=== PATIENT | male | born 1955 | race Caucasian/White ===

== ENCOUNTER 2024-12-20 15:29 | Inpatient (IN) | payer MEDICARE, MEDICAID, SELFPAY ==
[2024-12-20] VITALS (7 sets, daily range): BP systolic 107–121; BP diastolic 74–83; PULSE 71–93; RESP 16–99; TEMP 36.2–37.1; O2SAT 96–100
--- NOTE | 2024-12-20 15:37 | EKG_ITS ---
[facility] Test Date: 2024-12-20 Pat Name: KEENAN MURILLO Department: Room: - Gender: Male [employer]: : [id number] Requested By: Debbie Zacarias Order Number: [id number] Reading MD: Debbie Zacarias Measurements Intervals [place] Rate: 77 P: 27 KS: 149 QRS: -29 QRSD: 92 T: 30 QT: 366 QTc: 416 Interpretive Statements SINUS RHYTHM BORDERLINE LEFT AXIS DEVIATION [QRS AXIS < -20] LOW QRS VOLTAGE IN PRECORDIAL LEADS [QRS DEFLECTION < 1.0 mV IN CHEST LEADS] No previous ECG available for comparison /store/S0/[id number].pdf
--- NOTE | 2024-12-20 15:37 | XR_ITS ---
Examination: CT brain head without contrast. 2-D sagittal coronal reconstructions Date and time of exam:December 20, 2024 1541 hours INDICATIONS: Stroke alert, ataxia unsteady gait today CTDI: vol (mGy):50.3 DLP: (mGycm):1097 Technique: Multiple CT axial sections of the brain have been obtained, 5 mm slice thickness. Contrast has not been administered. 2-D sagittal, coronal reconstructions have been obtained Low dose protocols were performed. One or more of the following dose reduction techniques were used; automated exposure control, adjustment of the mA and/or KV according to patient size, use of iterative reconstruction technique. Findings: No significant ventricular enlargement. Subtle low-density in the right occipital lobe, axial image 25 No acute hemorrhage Ventricles are not enlarged No mass effect IMPRESSION: Suspicious for early acute nonhemorrhagic infarct in the right occipital lobe
--- NOTE | 2024-12-20 15:37 | XR_ITS ---
Examination: CTA carotids with intravenous contrast CTA brain, head with intravenous contrast. 2-D sagittal, coronal reconstructions. 3-D reconstructions. Exam date and time: December 1554 hours INDICATIONS: Stroke alert, ataxia today CTDI: vol (mGy) 22.2 DLP: (mGycm) 161 Technique: Multiple CTA axial brain, head carotid images post intravenous contrast injection 75 cc, Isovue-[id number]. 2-D sagittal, coronal reconstructions. 3-D reconstructions, 3-D post processing including vascular maximum intensity projection images. Low dose protocols were performed. One or more of the following dose reduction techniques were used; automated exposure control, adjustment of the mA and/or KV according to patient size, use of iterative reconstruction technique. Findings: 2 no significant common carotid carotid bifurcation or internal carotid artery stenoses Dominant right vertebral artery with no critical [id number] 10 mm calcification in the right thyroid gland Intracranial vertebral arteries do fill as well as basilar artery Juxtasellar portions of the internal carotid arteries M1 segments middle cerebral arteries middle cerebral artery trifurcation vessels fill as well as anterior cerebral arteries Occlusion of the right posterior cerebral artery at junction P1 P2 segments with distal filling IMPRESSION: No significant neck arterial stenoses Occlusion of the right posterior cerebral artery junction P1 P2 segments with distal filling
--- NOTE | 2024-12-20 15:39 | EDNOTE_ITS ---
Neuro Symptoms Deficit-RME/HPI General Chief Complaint: Neuro Symptoms/Deficit Stated Complaint: BLURRY VISION AND UNSTEADY GAIT; LKN@2100LASTNIGHT Time Seen by Provider: 12/20/24 15:37 Arrival date/time: 12/20/24 15:29 RME / HPI RME / HPI Narrative: 69-year-old male patient with no past medical history, however homeless, came in for evaluation regarding blurry vision and unsteady gait. Patient last well- known time was 9 PM last night before going to sleep. Show up to her mom because they are doing scheduled grocery today. Patient was noted to be less conversant than usual, blurry vision, cannot recognize things, and unsteady gait patient was noted to be ambulatory however dragging the left lower extremity. Denies any headache denies any other complaints patient is not taking any medication. Related Data Allergies Allergy/AdvReac Type Severity Reaction Status Date / Time No Known Allergies Allergy Verified 12/20/24 15:41 Review of Systems Review of Systems Narrative Review of Systems: Review of system reviewed and within normal limits except mentioned in HPI ED Exam Narrative Physical exam: VITAL SIGNS: Reviewed. GENERAL APPEARANCE: Alert and interactive, follows commands, no acute distress, HEAD AND FACE: Non-traumatic. ENT: PERRL, pink conjunctivitis, eyelid no trauma, Mucous membrane moist. NECK: Supple, nontender, no nuchal rigidity. CHEST: No tenderness, no crepitus, no paradoxical movement, no retractions. LUNGS: Clear, well ventilated, symmetric, no rales, no wheezing, no ronchi, no stridor, good breath sounds bilaterally. HEART: Regular rate, regular rhythm, no murmur, no gallops. ABDOMEN: Soft, positive bowel sounds, nondistended, no guarding, nontender, no rebound, no masses, RECTAL: Deferred. GENITAL: Deferred. NEUROLOGICAL: Gross motor function intact sensory function intact, Appropriate for age. MUSCULOSKELETAL: low back nontender, full range of motion. EXTREMITIES: Nontender, full range of motion. SKIN: Color pink, dry, no rash, no lacerations, no abrasions, no contusions. LYMPHATICS: Deferred. Course Quality Measures none Orders Category Date Time Status Bedside Blood Glucose NOW Care 12/20/24 15:37 Active Assistant Professor Of Mathematics NOW Care 12/20/24 15:37 Active Continuous Pulse Oximetry NOW Care 12/20/24 15:37 Completed EKG (ED ONLY) *Do not use* NOW Care 12/20/24 15:37 Completed In and Out Catheter NEEDED Care 12/20/24 15:37 Active Insert IV NOW Care 12/20/24 15:37 Active NIH Stroke Scale now Care 12/20/24 15:37 Active NPO NOW Care 12/20/24 15:37 Active Nurse Swallow Screen x1 Care 12/20/24 15:37 Active Consult to Neurology / Tele-Neurology Routine Cons 12/20/24 15:[address] angio stroke protocol Stat Exams 12/20/24 15:[address] stroke protocol Stat Exams 12/20/24 15:37 Completed EKG (ED Only) Stat Exams 12/20/24 15:37 Draft CBC Stat Lab 12/20/24 15:55 Completed Comprehensive Metabolic Panel Stat Lab 12/20/24 15:55 Completed Drug Screen,Urine Stat Lab 12/20/24 20:10 Completed HCG Titer if Positive Stat Lab 12/20/24 15:55 Completed Magnesium Stat Lab 12/20/24 15:55 Completed Partial Thromboplastin Time Stat Lab 12/20/24 15:55 Completed Prothrombin Time with INR Stat Lab 12/20/24 15:55 Completed Troponin I Stat Lab 12/20/24 15:55 Completed Urinalysis Stat Lab 12/20/24 20:10 Completed Urine Culture Stat Lab 12/20/24 20:10 Received Aspirin Med 12/20/24 16:13 Discontinued 325 mg PO X1 ONE Ondansetron Inj [Zofran Inj] Med 12/20/24 15:37 Active 4 mg IV Q4HR PRN Oxygen Delivery NOW RT 12/20/24 15:37 Active Vital Signs Vital signs: Vital Signs Temperature 98.6 F 12/20/24 15:35 Pulse Rate 93 12/20/24 15:35 Respiratory Rate 18 12/20/24 15:35 Blood Pressure 121/82 12/20/24 15:35 Pulse Oximetry (%) 98 12/20/24 15:35 Oxygen Delivery Method Room Air 12/20/24 15:35 Neuro Symptoms / Deficit MDM Narrative MDM Narrative:: 69-year-old male patient with no past medical history, however homeless, came in for evaluation regarding blurry vision and unsteady gait. Patient last well- known time was 9 PM last night before going to sleep. Show up to her mom because they are doing scheduled grocery today. Patient was noted to be less conversant than usual, blurry vision, cannot recognize things, and unsteady gait patient was noted to be ambulatory however dragging the left lower extremity. Denies any headache denies any other complaints patient is not taking any medication. GCS of 15, NIHHs 6 3:38 PM stroke alert was initiated right away. Spoke with teleneurologist who recommend admission for stroke workup and management. Recommendation is to start the patient on aspirin. Patient is not a candidate for thrombectomy. Patient is not also a candidate for thrombolysis due to timeframe. CT scan of the head showed Suspicious for early acute nonhemorrhagic infarct in the right occipital lobe CTA of the head and neck showed No significant neck arterial stenoses Occlusion of the right posterior cerebral artery junction P1 P2 segments with distal filling none Plan of care discussed with the family who agrees to be admitted for further management. Patient data External records reviewed:: None Clinical information provided by:: none Social determinants that could affect healthcare access:: none Patient has the following chronic illnesses:: None How is presenting disease/condition affected by chronic disease/condition?: no chronic disease Evaluation data The following diagnostics were reviewed and interpreted by me:: lab results and radiology exam(s) Lab and/or radiology exams considered but not ordered:: None Interpretation Summary: EKG showed sinus rhythm, ventricular rate of 77 bpm, IL interval 149 MS, no ST segment elevation depression noted. Medications / Prescriptions Medications or Prescriptions considered but not ordered:: None Medication administrations:: Medication Administration History Acetaminophen (Acetaminophen 325 Mg Tablet) 650 mg PO Q6H PRN PRN Reason: Fever >101.5 Stop: 01/19/25 17:08 Aspirin (Aspirin Ec 81 Mg Tabec) 81 mg PO DAILY RICKY Stop: 01/20/25 08:59 Atorvastatin Calcium (Atorvastatin Calcium 20 Mg Tablet) 40 mg PO HS RICKY Stop: 01/19/25 20:59 Last Admin: 12/20/24 21:08 Dose: 40 mg Documented By: CHARITY Heparin Sodium (Porcine) (Heparin Sod Inj 5000 Unit/Ml Vial) 5,000 unit SC Q8HR RICKY Stop: 01/03/25 21:59 Last Admin: 12/20/24 21:08 Dose: 5,000 unit Documented By: CHARITY Co-signed By: PAM Ondansetron HCl (Ondansetron Inj 2 Mg/Ml Inj 2 Ml) 4 mg IV Q4HR PRN PRN Reason: NAUSEA OR VOMITING Stop: 01/19/25 15:36 Sennosides (Senna Tablet) 1 tab PO BID PRN; Protocol PRN Reason: CONSTIPATION Stop: 01/19/25 17:08 Discontinued Medications Aspirin (Aspirin 325 Mg Tablet) 325 mg PO X1 ONE Stop: 12/20/24 16:14 Last Admin: 12/20/24 18:12 Dose: 325 mg Documented By: ALLEY Aspirin Consultations Consultation(s) initiated? (list below): Yes Consultation #1 (Physician, Specialty, Details): Teleneurologist discussed the case thank you Diagnosis Neuro Differential Diagnosis: subarachnoid hemorrhage, cerebrovascular accident and transient cerebral ischemia Most likely diagnosis given after review of the tests above:: Acute CVA Admission Indicated Admission indicated?: indicated Admission Request Was there a request for admission?: Yes Admission Attestation Admission request attestation: Discussed case with [Dr. Mendiola] from Hospitalist service regarding admission. Discussed patients ED course, exam findings, labs, and radiology results. The Hospitalist [agrees ] to accept the patient for admission. Disposition Plan Disposition Plan: Admit Discharge Plan Plan Patient Disposition: Admit Acute Care w/in Hospital Disposition Comment: Stable Problem List Clinical Impression: Cerebrovascular accident
[2024-12-20 16:18] LABS: Basophils # (Auto) 0.1 Thou/mm3 (0.0-0.2); Basophils % (Auto) 1 % (0-2.5); Eosinophils # (Auto) 0.1 Thou/mm3 (0.0-0.5); Eosinophils % (Auto) 1 % (0-10); Hematocrit 40.4 % (41.0-53.0); Hemoglobin 13.5 g/dL (13.5-16.0); Immature Granulocytes % (Auto) 1 % (0-0); Immature Granulocytes Auto 0.04 Thou/mm3 (0.00-0.00); Lymphocytes # (Auto) 1.5 Thou/mm3 (1.0-4.8); Lymphocytes % (Auto) 17 % (10-50); Mean Corpuscular HGB Conc 33.4 g/dl (31.0-37.0); Mean Corpuscular Hemoglobin 27.5 pg (25.0-35.0); Mean Corpuscular Volume 82 fL (80-100); Monocytes # (Auto) 0.9 Thou/mm3 (0.0-0.8); Monocytes % (Auto) 10 % (0-12); Neutrophils # (Auto) 6.2 Thou/mm3 (1.8-7.7); Neutrophils % (Auto) 70 % (37-80); Nucleated Red Blood Cell % 0 /100 WBC (0); Platelet Count 391 Thou/mm3 (140-440); RDW Standard Deviation 40.6 fL (35.1-43.9); Red Blood Count 4.91 Miln/mm3 (4.50-5.90); White Blood Count 8.8 Thou/mm3 (3.8-10.6)
--- NOTE | 2024-12-20 16:24 | ESCONSULT_ITS ---
Tele Neuro Consultation Consultation Date 12/20/24 Most Recent Vital Signs Last Vital Signs Pulse Ox 98 12/20/24 15:37 Consultation Narrative [facility] Patient Name:???Jaime Andre Date of :???1955 Identification Number:??? Date of Service:???12/20/2024 15:39:03 Diagnosis:?I63.30 - Cerebrovascular accident (CVA) due to thrombosis of cerebral artery ([facility]) ?I63.331 - Cerebrovascular accident (CVA) due to thrombosis of right posterior cerebral artery ([facility]) Impression: ?69M with no PMH, unhoused, spends the night with his mother, presents due to unsteady gait and change in vision, he confirms LKN 9pm last night, when he saw his mother today she noted he was less conversant, could not recognize things, unsteady/dragging LLE, blurry vision. He states today his feet didn't want to go the way they should. He is unable to give me a time re:when he noticed these symptoms. ? ?On exam difficult to appreciate given [place] and cannot see patient's face dir ectly given his angle and difficult to direct, but suspect L facial droop; he also has LLE drift and likely L visual field deficit. ? ?CT head concerning for R occipital infarct. ?CTA with R P1/P2 junction occlusion, patient not a thrombectomy candidate due to extensive early ischemic changes present on CT head. ? Our recommendations are outlined below. Recommendations: ? Stroke/Telemetry Floor ? Bedside Swallow Eval ? DVT Prophylaxis ? Head of Bed 30 Degrees ? Euglycemia and Avoid Hyperthermia (PRN Acetaminophen) ? Antihypertensives PRN if Blood pressure is greater than 220/120 or there is a concern for End organ damage/contraindications for permissive HTN. If blood pressure is greater than 220/120 give labetalol PO or IV or Vasotec IV with a goal of 15% reduction in BP during the first 24 hours. ?ASA 325 if passes bedside swallow, otherwise ASA 300mg LA; ?Neuro checks Q4 hours; ?MR brain w/o; TTE; lipid panel, HA1c, TSH; ?PT/OT Sign Out: ? Discussed with Emergency Department Provider Advanced Imaging:CTA Head and Neck Completed. LVO:Yes Discussed with DC :No Metrics: Last Known Well: 12/19/2024 21:00:00 Dispatch Time: 12/20/2024 15:39:03 Arrival Time: 12/20/2024 15:29:00 Initial Response Time: 12/20/2024 15:45:01Symptoms: unsteady gait. Initial patient interaction: 12/20/2024 16:00:00 NIHSS Assessment Completed: 12/20/2024 16:05:52Patient is not a candidate for Thrombolytic. Thrombolytic Medical Decision: 12/20/2024 16:06:30Patient was not deemed candidate for Thrombolytic because of following reasons: LKW outside 4.5 hr window. . I personally Reviewed the CT Head and it Showed possible early ischemic changes R occipital lobe Primary Provider Notified of Diagnostic Impression and Management Plan on: 12/20/2024 16:11:17 History of Present Illness:Patient is a 69 year old Male. Patient was brought by private transportation with symptoms of unsteady gait. 69M with no PMH, unhoused, spends the night with his mother, presents due to unsteady gait and change in vision, he confirms LKN 9pm last night, when he saw his mother today she noted he was less conversant, could not recognize things, unsteady/dragging LLE, blurry vision. He states today his feet didn't want to go the way they should. He is unable to give me a time re:when he noticed these symptoms. ? Past Medical History: ?There is no history of Stroke Medications: No Anticoagulant use? No Antiplatelet use Reviewed EMR for current medications Allergies:? Reviewed Social History: Smoking: No Family History: There is no family history of premature cerebrovascular disease pertinent to this consultation ROS : 14 Points Review of Systems was performed and was negative except mentioned in HPI. Past Surgical History: There Is No Surgical History Contributory To Today?s Visit ? Examination: BP(121/82),?Pulse(93),?Blood Glucose(131) 1A: Level of Consciousness - Alert; keenly responsive?+ 0 1B: Ask Month and Age - Both Questions Right?+ 0 1C: Blink Eyes & Squeeze Hands - Performs Both Tasks?+ 0 2: Test Horizontal Extraocular Movements - Normal?+ 0 3: Test Visual [place] - Partial Hemianopia?+ 1 4: Test Facial Palsy (Use Grimace if Obtunded) - Normal symmetry?+ 0 5A: Test Left Arm Motor Drift - No Drift for 10 Seconds?+ 0 5B: Test Right Arm Motor Drift - No Drift for 10 Seconds?+ 0 6A: Test Left Leg Motor Drift - Drift, but doesn't hit bed?+ 1 6B: Test Right Leg Motor Drift - No Drift for 5 Seconds?+ 0 7: Test Limb Ataxia (FNF/Heel-Barakat) - No Ataxia?+ 0 8: Test Sensation - Normal; No sensory loss?+ 0 9: Test Language/Aphasia - Normal; No aphasia?+ 0 10: Test Dysarthria - Normal?+ 0 11: Test Extinction/Inattention - No abnormality?+ 0 NIHSS Score:?2 Pre-Morbid Modified Ware Scale:1 Points = No significant disability despite symptoms; able to carry out all usual duties and activities Spoke with :?Jasiel RAMSEY This consult was conducted in real time using interactive audio and video technology. Patient was informed of the technology being used for this visit and agreed to proceed. Patient located in hospital and provider located at home/office setting. Patient is being evaluated for possible acute neurologic impairment and high probability of imminent or life-threatening deterioration. I spent total of 35 minutes providing care to this patient, including time for face to face visit via telemedicine, review of medical records, imaging studies and discussion of findings with providers, the patient and/or family. Dr Ivelisse Sheffield [facility] For Inpatient follow-up with [facility] physician please call [facility] at . As we are not an outpatient service for any post hospital discharge needs please contact the hospital for assistance. If you have any questions for the [facility] physicians or need to reconsult for clinical or diagnostic changes please contact us via [facility] at .
[2024-12-20 16:27] LABS: INR 1.1 (0.9-1.3); Partial Thromboplastin Time 27.8 Seconds (22.0-36.0); Prothrombin Time 12.4 Seconds (9.0-12.2)
--- NOTE | 2024-12-20 16:31 | PC.NURSE ---
PTS LAST KNOWN WELL WAS 9PM LAST NIGHT. PT NOTICED HIS GAIT IS OFF. TODAY NOTICED THAT IT IS STILL OFF AND FEELS THAT IS VISION IS WEIRD BUT CANNOT PUT IN WORDS HOW. PT HAS PTS LEFT SIDE IS WEAK, BUT ABLE TO HOLD BOTH LIMBS WITHOUT FALLING TO BED. PT IS HOMELESS, GOES TO MOMS HOUSE EVERY SO OFTEN. WILL CONTINUE W/POC
[2024-12-20 17:14] LABS: HCG Titer if Positive Negative
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
[2024-12-20 17:57] LABS: Alanine Aminotransferase 11 U/L (10-49); Alkaline Phosphatase 139 U/L (46-116); Anion Gap 10 (7-16); Aspartate Amino Transferase 24 U/L (0-34); BUN/Creatinine Ratio 13 Ratio (12-20); Bilirubin,Total 0.7 mg/dL (0.3-1.2); Blood Urea Nitrogen 24 mg/dL (9-23); Calcium 9.1 mg/dL (8.3-10.6); Calcium (Corrected) 9.1 mg/dL (8.5-10.1); Carbon Dioxide 19.4 mMol/L (20.0-31.0); Chloride 106 mMol/L (98-107); Creatinine (Component) 1.9 mg/dL (0.6-1.3); Globulin 4.1 gm/dL (2.3-3.5); Glucose 134 mg/dL (74-106); Osmolality,Calculated 276 (275-295); Potassium 4.9 mMol/L (3.4-5.1); Sodium 135 mMol/L (136-145); Total Protein 8.1 gm/dL (5.7-8.2); Troponin I < 0.020 ng/mL (0.0-0.045); eGFR 38 See Note
[2024-12-20] MEDS: Aspirin 325 MG TABLET PO (18:12)
[2024-12-20 20:26] LABS: Collection Type, Urine Clean Catch; Squamous Epithelial Cell,Urine 0 /hpf (0-5)
--- NOTE | 2024-12-20 20:29 | PC.NURSE ---
report given to obdulia scherer at tele.
[2024-12-20 20:45] LABS: Bilirubin,Urine Negative (Negative); Blood,Urine 3+ (Negative); Color,Urine Orange (Lt Yel-Yel); Glucose, Urine Negative (Negative); Ketones,Urine Negative (Negative); Leukocyte Esterase,Urine Positive (Negative); Nitrite,Urine Negative (Negative); PH,Urine 7.5 (5.0-7.0); Protein,Urine 3+ (Neg - Trace); RBC,Urine 42 /hpf (0-3); Specific Gravity,Urine 1.031 (1.001-1.035); WBC,Urine 323 /hpf (0-5)
[2024-12-20 20:50] LABS: Clarity,Urine Turbid (Clear/Hazy)
[2024-12-20 20:54] LABS: Amphetamine/Methamp Scrn,U Negative (Negative); Barbiturate Screen,Urine Negative (Negative); Benzodiazepines Screen,Urine Negative (Negative); Benzoylecgonine Screen, Ur Negative (Negative); Fentanyl Screen,Urine Negative (Negative); Opiate Screen,Urine Negative (Negative); THC Screen,Urine Negative (Negative)
[2024-12-20] MEDS: ATORVASTATIN CALCIUM 20 MG TABLET 40 MG PO (21:08)
[2024-12-20] MEDS: HEPARIN SOD INJ 5000 UNIT/ML VIAL SC (21:08)
[2024-12-21] VITALS: BP 96/66; PULSE 69; PULSE 73; RESP 21; TEMP 35.9; O2SAT 97
--- NOTE | 2024-12-21 | XR_ITS ---
Examinations: MRI Brain without intravenous contrast. MRA brain without intravenous contrast. MRA carotids without intravenous contrast 3-D vascular reconstructions Date and time of exam: December 21, 2024 1005 hours Indication: Stroke alert December 20, 2024, onset unsteady gait altered mental status blurred vision Technique: Multiple axial and sagittal images of the brain have been obtained MRA brain carotid images without contrast obtained, including 3-D postprocessing, vascular maximum intensity projection images Findings: Sellaturcica is not enlarged. The optic chiasm and infundibular stalk are not remarkable. Prepontine and interpeduncular cisterns are not enlarged. No localized enlargement of the medulla or demetrius. Fourth ventricle and cerebellar tonsils normal in position. Subacute hemorrhage is not seen. Fourth ventricle is midline. Mass in the cerebellopontine angle region is not evident. 7th and 8th nerve complexes exhibits symmetry. Globes are symmetrical with no retro-orbital mass. Increased white matter signal prominent in the right occipital lobe Diffusion-weighted images demonstrate large focus restricted diffusion posterior right temporal right occipital lobe, smaller subtle foci restricted diffusion right basal ganglia and posterior right parietal lobe Mass-effect upon the ventricular system is not identified. MRA brain images absent filling right posterior cerebral artery branches, significant stenosis distal M1 segment right middle cerebral artery Impression: Large acute infarct right posterior temporal right occipital lobe Smaller acute embolic type infarcts right basal ganglia right posterior parietal lobe Absent filling right posterior cerebral artery
[2024-12-21 04:00] VITALS: BP 112/77; PULSE 74; PULSE 76; RESP 12; TEMP 36.3; O2SAT 95
[2024-12-21] MEDS: HEPARIN SOD INJ 5000 UNIT/ML VIAL SC ×3 (05:07→21:08)
[2024-12-21 05:33] LABS: Basophils # (Auto) 0.1 Thou/mm3 (0.0-0.2); Basophils % (Auto) 1 % (0-2.5); Eosinophils # (Auto) 0.3 Thou/mm3 (0.0-0.5); Eosinophils % (Auto) 3 % (0-10); Hemoglobin 12.8 g/dL (13.5-16.0); Immature Granulocytes % (Auto) 1 % (0-0); Immature Granulocytes Auto 0.05 Thou/mm3 (0.00-0.00); Lymphocytes # (Auto) 1.4 Thou/mm3 (1.0-4.8); Lymphocytes % (Auto) 17 % (10-50); Mean Corpuscular HGB Conc 32.8 g/dl (31.0-37.0); Mean Corpuscular Hemoglobin 27.9 pg (25.0-35.0); Mean Corpuscular Volume 85 fL (80-100); Monocytes % (Auto) 12 % (0-12); Neutrophils # (Auto) 5.8 Thou/mm3 (1.8-7.7); Neutrophils % (Auto) 67 % (37-80); Nucleated Red Blood Cell % 0 /100 WBC (0); Platelet Count 442 Thou/mm3 (140-440); RDW Standard Deviation 41.9 fL (35.1-43.9); Red Blood Count 4.59 Miln/mm3 (4.50-5.90); White Blood Count 8.6 Thou/mm3 (3.8-10.6)
[2024-12-21 06:14] LABS: Glucose Estimated Average 100 mg/dL (80-131); Hemoglobin A1C 5.1 % Hgb (4.8-6.0)
[2024-12-21 06:23] LABS: Alanine Aminotransferase 8 U/L (10-49); Albumin, Serum 3.6 gm/dL (3.4-4.8); Albumin/Globulin Ratio 0.9 (1.2-2.2); Alkaline Phosphatase 124 U/L (46-116); Anion Gap 12 (7-16); Aspartate Amino Transferase 10 U/L (0-34); BUN/Creatinine Ratio 13 Ratio (12-20); Bilirubin,Total 0.8 mg/dL (0.3-1.2); Blood Urea Nitrogen 24 mg/dL (9-23); Calcium 9.2 mg/dL (8.3-10.6); Calcium (Corrected) 9.5 mg/dL (8.5-10.1); Carbon Dioxide 20.2 mMol/L (20.0-31.0); Chloride 107 mMol/L (98-107); Cholesterol 107 mg/dL (132-200); Creatinine (Component) 1.8 mg/dL (0.6-1.3); Free T4 (Free Thyroxine) 1.15 ng/dL (0.89-1.76); Globulin 3.8 gm/dL (2.3-3.5); Glucose 90 mg/dL (74-106); HDL Cholesterol 27 mg/dL (40-60); LDL Cholesterol,Calculated 61 mg/dL (0-130); Osmolality,Calculated 281 (275-295); Phosphorous 2.8 mg/dL (2.4-5.1); Potassium 3.8 mMol/L (3.4-5.1); Sodium 139 mMol/L (136-145); Thyroid Stimulating Hormone 0.47 uIU/mL (0.55-4.78); Total Protein 7.4 gm/dL (5.7-8.2); Triglycerides 96 mg/dL (30-150); eGFR 40 See Note
[2024-12-21 07:44] VITALS: BP 119/82; PULSE 80; RESP 19; TEMP 36.2; O2SAT 96
--- NOTE | 2024-12-21 10:27 | XR_ITS ---
Examination: Retroperitoneal ultrasound, complete Technique: Multiple high resolution grayscale images of the retroperitoneum obtained, including kidneys and bladder. Exam date and time:December 21, 2024 1144 hours INDICATIONS: Abnormal proteinuria laboratory examination December 21, 2024 FINDINGS: Right kidney 16.9 cm cortex 2.6 cm Advanced right hydronephrosis 3.6 cm lower pole cyst Left kidney 13.8 cm in the cortex 1.5 cm Moderate bilateral renal parenchymal scar formation Urinary bladder wall is thickened with large bladder calculus at least 3.9 cm Bladder prevoid volume 63 cc Prostate 4.2 x 3.4 x 4.0 cm IMPRESSION: Advanced right hydronephrosis Moderate bilateral renal parenchymal scar formation 3.9 cm bladder calculus, consider CT abdomen pelvis without intravenous contrast follow-up
--- NOTE | 2024-12-21 11:15 | PC.SS ---
Patient Jaime Andre is a 69 Year old male admitted for Acute CVA. SS met with patient at bedside to discuss discharge plan and review demographic information. Patient reports he lives at home with a roommate. Patient reports his surrogate decision maker is his mother, Angelia Andre [phone]. Patient reports prior to admission he was able to complete ALD's independently. Patient does not utilize any source of DME to assist with ambulation. Choice of pharmacy is [facility] in [place]. Patient reports he does not have a PCP. At time of Discharge patient will return back home. Next of Kin, Mother, Angelia Andre Discharge plan: Home
--- NOTE | 2024-12-21 11:55 | PC.SS ---
SS follow up note; Patient is pending MRI, Echo and PT evaluation, when patient is medically cleared he will return back home.
[2024-12-21 12:00] VITALS: BP 97/64; PULSE 67; RESP 15; TEMP 36.1; O2SAT 96
[2024-12-21] MEDS: SODIUM CHLORIDE 0.9% 500 ML 500 ML 75 ML IV (13:13)
--- NOTE | 2024-12-21 14:17 | PD.RESCONSUL ---
HPI Data of Consult Requesting Physician: Marily Mendiola DO Admitting Provider: Marily Mendiola DO Attending Provider: Marily Mendiola DO Primary Care Provider: Physician No Primary/Family Consult Narrative History of present illness: 69-year-old man with past medical history of methamphetamine use disorder, who came to the ED with chief complaint of unsteady gait and imbalance and was admitted to [facility] to rule out stroke. Neurology was consulted. History was taken per chart review. Per patient mother she was noticing he was being slower than usual and that his gait was not normal for which she decided to bring him to the ED. Initial vitals BP 121/82, HR [address] head shows suspicious for early acute nonhemorrhagic infarct in the right occipital lobe. CTA head/neck showed occlusion of the right posterior cerebral artery junction P1 P2 segment with distant filling. Brain MRI showed large acute infarct in right posterior temporal and right occipital lobe. Small acute embolic type infarct in the right basal ganglia with right posterior parietal lobe, absent filling of right posterior cerebral artery. Last well-known was around 9 PM before the day of the presentation per teleneurology recommendations due to early ischemic changes in CT patient was not a thrombectomy candidate. Past medical history: None Past surgical history: Facial skin graft Family history: Unknown Social history: Living his mother property in a trailer/methamphetamine use disorder drinks alcohol occasionally Travel history: None relevant Allergies: None no allergies cc:: cc: Marily Mendiola DO Review of Systems Review of Systems Systems Reviewed: All systems reviewed, normal except as documented Exam Vital Signs Temp Pulse Resp BP Pulse Ox O2 Del Method 97.0 F 67 15 97/64 96 Room Air 12/21/24 12:00 12/21/24 12:00 12/21/24 12:00 12/21/24 12:00 12/21/24 12:00 12/21/24 12:00 Narrative Exam General: No acute distress, frail, dishevel, AO x 2, somnolent, looks older for his age. HEENT: NC/AT, PERRL, EOMI, Good conjugate gaze, moist mucous membranes, oropharynx clear. Neck: Supple, No masses, No adenopathy, carotid pulse 2+ bilaterally without bruits, No JVD, normal range of motion. Chest: Symmetrical, atraumatic, and with equal expansion , Nontender on palpation no deformity and no crepitus. CVS: S1 and S2 present, Regular rate and rhythm, No murmurs, rubs or gallops perceived during auscultation. Lungs: Normal respiratory effort, CTAB, no wheezing, rhonchi or rales perceived during auscultation, No intercostal or subcostal retraction. Abdomen : Soft, no tenderness to palpation, no guarding ,no rebound, +BS Extremities: No edema, warm well perfused, normal tone and ROM, cap refill less than 2, +2 dp equal bilaterally, able to move all 4 extremities spontaneously. Skin: Face skin graft zygomatic area and nose, skin thickening secondary to scar longo in chest Neuro: AOx2, somnolent, no dysarthria, no aphasia, left hemianopsia, strength B/L upper and lower extremities 5/5, no dysmetria, gait not assessed, able to move all 4 extremities spontaneously Psych: Flat affect Results Labs 12/23/24 04:17 12/23/24 04:17 Labs: Short CBC 12/20/24 12/21/24 Range/Units 15:55 04:46 WBC 8.8 8.6 (3.8-10.6) Thou/mm3 Hgb 13.5 12.8 L (13.5-16.0) g/dL Hct 40.4 L 39.0 L (41.0-53.0) % Plt Count 391 442 H D (140-440) Thou/mm3 BMP 12/20/24 12/21/24 15:55 04:46 Sodium 135 L 139 Potassium 4.9 3.8 D Chloride 106 107 Carbon Dioxide 19.4 L 20.2 BUN 24 H 24 H Creatinine 1.9 H 1.8 H Glucose 134 H 90 Calcium 9.1 9.2 Cardiac Enzymes 12/20/24 Range/Units 15:55 Troponin I < 0.020 (0.0-0.045) ng/mL Liver Function 12/20/24 12/21/24 Range/Units 15:55 04:46 Total Bilirubin 0.7 0.8 (0.3-1.2) mg/dL AST 24 10 (0-34) U/L ALT 11 8 L (10-49) U/L Alkaline Phosphatase 139 H 124 H (46-116) U/L Albumin 4.0 3.6 (3.4-4.8) gm/dL Urine 12/20/24 Range/Units 20:10 Urine Color Davison A (Lt Yel-Yel) Urine Clarity Turbid A (Clear/Hazy) Urine pH 7.5 H (5.0-7.0) Ur Specific [place] 1.031 (1.001-1.035) Urine Protein 3+ A (Neg - Trace) Urine Glucose (UA) Negative (Negative) Quality Measures Quality Measures none Advance care planning discussed with:: patient Medications Home Medications and Allergies Allergies Allergy/AdvReac Type Severity Reaction Status Date / Time No Known Allergies Allergy Verified 12/20/24 15:41 Visit Medications Acetaminophen (Acetaminophen 325 Mg Tablet) 650 mg PO Q6H PRN PRN Reason: Fever >101.5 Stop: 01/19/25 17:08 Aspirin (Aspirin Ec 81 Mg Tabec) 81 mg PO DAILY RICKY Stop: 01/20/25 08:59 Last Admin: 12/21/24 08:58 Dose: Not Given Atorvastatin Calcium (Atorvastatin Calcium 20 Mg Tablet) 40 mg PO HS RICKY Stop: 01/19/25 20:59 Last Admin: 12/20/24 21:08 Dose: 40 mg Clopidogrel Bisulfate (Clopidogrel Bisulfate 75 Mg Tablet) 75 mg PO QDAY RICKY Stop: 01/21/25 08:59 Heparin Sodium (Porcine) (Heparin Sod Inj 5000 Unit/Ml Vial) 5,000 unit SC Q8HR RICKY Stop: 01/03/25 21:59 Last Admin: 12/21/24 13:08 Dose: 5,000 unit Sodium Chloride (Ns) 500 mls @ 75 mls/hr IV .Q6H40M ONE Stop: 12/21/24 17:47 Last Admin: 12/21/24 13:13 Dose: 75 mls/hr Ondansetron HCl (Ondansetron Inj 2 Mg/Ml Inj 2 Ml) 4 mg IV Q4HR PRN PRN Reason: NAUSEA OR VOMITING Stop: 01/19/25 15:36 Sennosides (Senna Tablet) 1 tab PO BID PRN; Protocol PRN Reason: CONSTIPATION Stop: 01/19/25 17:08 Discontinued Medications Aspirin (Aspirin 325 Mg Tablet) 325 mg PO X1 ONE Stop: 12/20/24 16:14 Last Admin: 12/20/24 18:12 Dose: 325 mg Assessment & Plan Plan #Acute right large temporal and basal ganglia stroke Patient came to the ER with chief complaint of unsteady gait and being more slow than usual when walking and speaking per patient motor Patient stated that the last time he used meth was 2 weeks ago and he normally does make daily Last well-known was around 9 PM before the day of the presentation and due to early ischemic changes in CT patient was not a thrombectomy candidate. CT head shows suspicious for early acute nonhemorrhagic infarct in the right occipital lobe. CTA head/neck showed occlusion of the right posterior cerebral artery junction P1 P2 segment with distant filling. Brain MRI showed large acute infarct in right posterior temporal and right occipital lobe. Small acute embolic type infarct in the right basal ganglia with right posterior parietal lobe, absent filling of right posterior cerebral artery. Labs were unremarkable Plan: ? Atorvastatin 40 mg p.o. q. night ? Aspirin 81 mg p.o. daily ? Plavix 75 mg p.o. daily starting first dose tomorrow morning ? HIV, RPR and homocysteine pending ? Pending echocardiogram bubble study ? Refer to physical therapy Patient discussed with my attending Dr Josue Tenorio MD PGY-3 Disclaimer: Despite multiple revisions, due to the dictation software being used, the document bellow may not be free of grammatical errors including phonetic/typographic errors. However, this does not deter from our commitment to providing health care in the patient's best interest in mind. Attending Provider Attestation/Addendum Have seen and examined the patient at the bedside and I agree with the resident's findings, assessment and plan of care. Continue with the current management. Patient has left homonymous hemianopsia. Further workup is in progress for evaluation of hematuria.
--- NOTE | 2024-12-21 14:33 | PC.PT ---
Patient is safe to ambulate to a bedside commode with a FWW and 1 staff assist for safety. RN made aware.
--- NOTE | 2024-12-21 15:58 | XR_ITS ---
Examination: CT abdomen and pelvis without contrast. Coronal 3-D reconstructions. Sagittal 2-D reconstructions. Date and time of exam:December 21, 2024 1647 hrs. Indications: Painful urination today, advanced right hydronephrosis on renal sonogram today CTDI: vol (mGy): 10.8 DLP: (mGycm): 599 Technique: Axial images of the abdomen have been obtained, 3 mm slice thickness Intravenous contrast material has not been administered. Low dose protocols were performed. One or more of the following dose reduction techniques were used; automated exposure control, adjustment of the mA and/or KV according to patient size, use of iterative reconstruction technique. Findings: Pneumonia right base Liver is irregular in contour Spleen is not enlarged No pancreatic mass Advanced right hydronephrosis There is contrast in the kidneys from the patient's CTA study yesterday which makes assessment of the collecting systems and ureters ventricle There is duplication of the right renal collecting, 5 cm staghorn calculus in the lower pole moiety right ureteropelvic junction There is a right ureteral stent fragment projecting the lower right ureter and coiled in the bladder There is a 32 mm bladder calculus Mild to moderate left hydronephrosis or renal calculi No bowel obstruction Impression: Right pyelonephritis Duplicated right renal collecting system, significant right hydronephrosis with 5 cm staghorn calculus in the lower pole moiety right ureteropelvic junction Right ureteral stent fragment projecting lower right ureter and in the bladder 3.2 cm bladder calculus
[2024-12-21 16:00] VITALS: BP 111/76; PULSE 70; RESP 17; TEMP 36.3; O2SAT 96
[2024-12-21 16:25] LABS: Syphilis Nonreactive (Nonreactive)
--- NOTE | 2024-12-21 16:51 | ESPR_ITS ---
<Statement entered by Neal Brown MD - 12/22/24 08:18> Senior Resident Attestation: I supervised/discussed management plan with human resource intern physician Dr. Booth, and was involved in the care of this patient. I personally saw and examined the patient and discussed the assessment and plan with the entire medicine team, including my attending. I agree with the assessment and plan as documented. Patient reports his symptoms has improved however vision in the right eye is significantly degraded. MRI confirmed acute stroke. In-house neurology consulted, patient will be started on Plavix tomorrow. Patient's care was discussed with attending physician, Dr. Mendiola. Neal Brown MD PGY-2. Documentation for date of: 12/21/24 Subjective Subjective Interval history: No acute overnight events reported. Patient seen and examined at bedside this morning. Patient appears to be more lethargic and is minimally answering the questions and answers. Patient continues to have vision loss in the left eye however no other neuro deficits is noted. Patient's speech is clear and repetition is also normal. Patient denies any shortness of breath dizziness or weakness. MRIs completed which showed evidence of acute infarct. Per neuro evaluation patient will continue aspirin and statin and will start Plavix tomorrow. Patient states that he has been having dysuria for a long time but does have significant history of nephrolithiasis which he previously followed urologist in [place] but does not follow anyone here in town. Ultrasound of kidney was ordered this morning which showed hydronephrosis and a large calculi in the bladder therefore will consult to urologist Dr. Vinson is placed. And will order a CT of abdomen pelvis. Exam Vital Signs Temp Pulse Resp BP Pulse Ox O2 Del Method 97.4 F 70 17 111/76 96 Room Air 12/21/24 16:00 12/21/24 16:00 12/21/24 16:00 12/21/24 16:00 12/21/24 16:12/21/24 16:00 Narrative Exam GENERAL: A&Ox3 . Awake, calm, unshaven, poor hygeine HEENT: Atraumatic, Normocephalic. mucous membranes moist. Eyes open, symmetrical, & clear HEART: Normal Heart Sounds LUNGS: Clear to auscultation with no wheezing or crackles. ABDOMEN: soft, non-distended, non-tender, no guarding or rebound tenderness SKIN: No Rash or ecchymoses, skin graft scar on face and left shoulder EXTREMITIES: No edema, tenderness, able to move all 4 extremities, pedal pulses palpated NEURO:? ? MENTAL STATUS:?AAOx3 ? LANG/SPEECH: Fluent, intact naming, repetition & comprehension ? CRANIAL NERVES: ? II: Pupils equal and reactive, left anopsia ? III, IV, : EOM intact, no gaze preference or deviation ? V: normal ? VII: no facial asymmetry ? VIII: normal hearing to speech ? MOTOR: 5/5 in both upper and lower extremities ? SENSORY: Normal to touch and sensation ? COORD: abnormal left finger to nose and normal on right, no tremor, no dysmetria Objective Labs 12/22/24 05:42 12/22/24 05:42 Labs: Laboratory Results - last 24 hr 12/20/24 12/20/24 12/21/24 15:55 20:10 04:46 WBC 8.6 RBC 4.59 Hgb 12.8 L Hct 39.0 L MCV 85 MCH 27.9 MCHC 32.8 RDW Std Deviation 41.9 Plt Count 442 H D Neut % (Auto) 67 Lymph % (Auto) 17 [place] % (Auto) 12 Eos % (Auto) 3 Baso % (Auto) 1 Neut # (Auto) 5.8 Lymph # (Auto) 1.4 [place] # (Auto) 1.0 H Eos # (Auto) 0.3 Baso # (Auto) 0.1 Immature Gran # (Auto) 0.05 H Absolute Nucleated RBC 0.00 Immature Gran % 1 H Nucleated RBC % 0 Sodium 135 L 139 Potassium 4.9 3.8 D Chloride 106 107 Carbon Dioxide 19.4 L 20.2 Anion Gap 10 12 BUN 24 H 24 H Creatinine 1.9 H 1.8 H Estim Creat Clear Calc Not Performed. Not Performed. eGFR 38 L 40 L BUN/Creatinine Ratio 13 13 Glucose [address] Glu mg/dL 100 Hemoglobin A1c 5.1 Calculated Osmolality 276 281 Calcium 9.1 9.2 Corrected Calcium 9.1 9.5 Phosphorus 2.8 Magnesium 2.0 2.0 Total Bilirubin 0.7 0.8 AST 24 10 ALT 11 8 L Alkaline Phosphatase 139 H 124 H Troponin I < 0.020 Total Protein 8.1 7.4 Albumin 4.0 3.6 Globulin 4.1 H 3.8 H Albumin/Globulin Ratio 1.0 L 0.9 L Triglycerides 96 Cholesterol 107 L LDL Cholesterol, Calc 61 HDL Cholesterol 27 L Cholesterol/HDL Ratio 4.0 TSH 0.47 L Free T4 1.15 Ur Collection Type Clean Catch Urine Color [place] A Urine Clarity Turbid A Urine pH 7.5 H Ur Specific [place] 1.031 Urine Protein 3+ A Urine Glucose (UA) Negative Urine Ketones Negative Urine Blood 3+ A Urine Nitrite Negative Urine Bilirubin Negative Urine Urobilinogen (Auto) 4.0 Ur Leukocyte Esterase Positive Urine RBC 42 H Urine WBC 323 H Ur Squamous Epith Cells 0 Urine Bacteria None Urine Opiates Screen Negative Urine Fentanyl Screen Negative Ur Barbiturates Screen Negative U Amphetamin/Meth Scrn Negative U Benzodiazepines Scrn Negative U Cocaine Metab Screen Negative U Marijuana (THC) Screen Negative Syphilis Serology HCG (Qual) Negative 12/21/24 15:14 WBC RBC Hgb Hct MCV MCH MCHC RDW Std Deviation Plt Count Neut % (Auto) Lymph % (Auto) [place] % (Auto) Eos % (Auto) Baso % (Auto) Neut # (Auto) Lymph # (Auto) [place] # (Auto) Eos # (Auto) Baso # (Auto) Immature Gran # (Auto) Absolute Nucleated RBC Immature Gran % Nucleated RBC % Sodium Potassium Chloride Carbon Dioxide Anion Gap BUN Creatinine Estim Creat Clear Calc eGFR BUN/Creatinine Ratio Glucose Estimated Ave Glu mg/dL Hemoglobin A1c Calculated Osmolality Calcium Corrected Calcium Phosphorus Magnesium Total Bilirubin AST ALT Alkaline Phosphatase Troponin I Total Protein Albumin Globulin Albumin/Globulin Ratio Triglycerides Cholesterol LDL Cholesterol, Calc HDL Cholesterol Cholesterol/HDL Ratio TSH Free T4 Ur Collection Type Urine Color Urine Clarity Urine pH Ur Specific [place] Urine Protein Urine Glucose (UA) Urine Ketones Urine Blood Urine Nitrite Urine Bilirubin Urine Urobilinogen (Auto) Ur Leukocyte Esterase Urine RBC Urine WBC Ur Squamous Epith Cells Urine Bacteria Urine Opiates Screen Urine Fentanyl Screen Ur Barbiturates Screen U Amphetamin/Meth Scrn U Benzodiazepines Scrn U Cocaine Metab Screen U Marijuana (THC) Screen Syphilis Serology Nonreactive HCG (Qual) Quality Measures Quality Measures none Advance care planning discussed with:: patient Assessment & Plan Assessment Current Active Medications: Generic Name Dose Route Start Last Admin Trade Name Freq PRN Reason Stop Dose Admin Acetaminophen 650 mg 12/20/24 17:09 Acetaminophen 325 Mg Tablet PO 01/19/25 17:08 Q6H PRN Fever >101.5 Aspirin 81 mg 12/21/24 09:00 12/21/24 08:58 Aspirin Ec 81 Mg Tabec PO 01/20/25 08:59 Not Given DAILY RICKY Atorvastatin Calcium 40 mg 12/20/24 21:00 12/20/24 21:08 Atorvastatin Calcium 20 Mg Tablet PO 01/19/25 20:59 40 mg HS RICKY Administration Clopidogrel Bisulfate 75 mg 12/22/24 09:00 Clopidogrel Bisulfate 75 Mg Tablet PO 01/21/25 08:59 QDAY RICKY Heparin Sodium (Porcine) 5,000 unit 12/20/24 22:00 12/21/24 13:08 Heparin Sod Inj 5000 Unit/Ml Vial SC 01/03/25 21:59 5,000 unit Q8HR RICKY Administration Sodium Chloride 500 mls @ 75 mls/hr 12/21/24 11:08 12/21/24 13:13 Ns IV 12/21/24 17:47 75 mls/hr .Q6H40M ONE Administration Ondansetron HCl 4 mg 12/20/24 15:37 Ondansetron Inj 2 Mg/Ml Inj 2 Ml IV 01/19/25 15:36 Q4HR PRN NAUSEA OR VOMITING Sennosides 1 tab 12/20/24 17:09 Senna Tablet PO 01/19/25 17:08 BID PRN CONSTIPATION Protocol Plan Mr. Andre is a 69-year-old male with no significant past medical history presented to the ED due unsteady gait and stroke like symptoms. Pt is admitted to telemetry for stroke work up. #Acute CVA Teleneuro was consulted, with recommendation of MRI pending to rule out CVA. -LKW: 9pm on 12/19/24 -NIHSS Score: 2 -pre morbid rank scale: 1 Points = No significant disability despite symptoms; able to carry out all usual duties and activities -Tele neuro consulted, recommendations appreciated -Head CTA : Occlusion of the right posterior cerebral artery junction P1 P2 segments with distal filling -Head CT : Suspicious for early acute nonhemorrhagic infarct in the right occipital lobe -?MRI brain with MRA : Large acute infarct right posterior temporal right occipital lobe, Smaller acute embolic type infarcts right basal ganglia right posterior parietal lobe Absent filling right posterior cerebral artery Plan: - Neuro checks q4HR - Keep head of bed elevated at 30 degrees - Loading dose Aspirin 325 mg x1 given in the ED - Aspirin 81mg daily, plavix and statin ordered -?limit sedating meds - Euglycemia and Avoid Hyperthermia (PRN Acetaminophen) -?Echo with bubble study ordered - follow up lipid panel, HbA1c, TSH with free T4 - Referral to PT/OT/speech therapy -In house neurologist Dr. Salas consulted #SHEILA vs. CKD #Hydronephrosis -Pt's Cr is 1.9 and GFR 38, BUN 24, there is no record of pt's baseline Cr and GFR -SHEILA Likely pre-renal due to poor oral hydration -Ultrasound of the kidneys showed advanced right hydronephrosis, moderate bilateral renal parenchymal scar formation, 3.9 cm bladder calculus Plan: -Consult to urology Dr. Good placed -CT abdomen/pelvis ordered -Monitor daily CMP -Avoid nephrotoxic and renally dose medications #10 mm calcification in the right thyroid gland -TSH 0.47 Free T4 1.15 -Pt is recommended to repeat labs in 3 months and follow up outpatient with primary care Health Maintenance Disposition: Telemetry for Acute CVA DVT Prophylaxis: Pt is on heparin drip GI Prophylaxis: not indicated Diet: dysphagia 2 diet (may take meds with bedside nurse swallow screen) Lines: Peripheral lines Code status: Full Assessment and plan discussed with my senior resident Dr. Brown & attending physician Dr. Marlena Booth (PGY-1)- Internal medicine resident Attending Provider Attestation/Addendum Marily Abreu, , attest that I was physically present for the bello portions of the service and evaluated the patient with the resident and I reviewed and discussed the case with the resident and agree with the resident's findings and plans of care as documented above Patient seen and evaluated this AM. He appears to have left hemianopia on my neurological exam with mild left sided weakness. Patient was able to ambulate with physical therapy using walker, but appeared to drift to the left. MRI was done today showing Large acute infarct right posterior temporal right occipital lobe. Smaller acute embolic type infarcts right basal ganglia right posterior parietal lobe.Absent filling right posterior cerebral artery. Pending echo. DAPT recommended to start in AM. Patient noted to have 3+ blood and 3+ protein on UA. Renal US was done showing advanced hydronephrosis and 3.9cm bladder stone. This is likely the cause of patient's frequent dysuria. Case discussed with urology, recommends CT abd/pelvis stone protocol. Pending urine cultures at this time.
--- NOTE | 2024-12-21 17:10 | ECHO_ITS ---
Transthoracic Echo Report Ht (in): Wt (lb): 143 Exam Location: Echo Lab Status: Inpatient Carrot Harvester: Deanna Ugalde Indications: Procedure Performed: BP: 119 / 82 HR: 73 Technical Quality: Very technically difficult study MEASUREMENTS (Male / Female) Normal Values DOPPLER PV Peak Velocity 102.0 cm/s PV Peak Gradient 4.2 mmHg FINDINGS Left Ventricle Normal left ventricular size, wall thickness, systolic function with no obvious regional wall motion abnormalities. Normal left ventricular diastolic filling pattern for age. The ejection fraction is visually estimated at 55%. Right Ventricle The right ventricle is normal in size and systolic function. Left Atrium The left atrium is normal by two-dimensional, color flow and Doppler imaging with no structural abnormalities, no thrombus formation present. Right Atrium The right atrium is normal by two-dimensional imaging, color flow and Doppler imaging with no structural abnormalities, no thrombus formation present. Atrial Septum The interatrial septum appears normal with no evidence of a shunt. Aorta The aorta is normal by two-dimensional, color flow and Doppler interrogation. Mitral Valve The mitral valve is normal by two-dimensional, color flow and Doppler interrogation. There is no significant mitral valve regurgitation, stenosis or prolapse. Aortic Valve The aortic valve is trileaflet and normal by two-dimensional, color flow and Doppler interrogation. There is no significant aortic valve regurgitation. Tricuspid Valve The tricuspid valve is normal by two-dimensional, color flow and Doppler interrogation. There is no significant tricuspid valve regurgitation. Pulmonic Valve The pulmonic valve is not well visualized. There is no significant pulmonic valve regurgitation. Vessels The pulmonary artery appears normal. The inferior vena cava pulmonary and hepatic veins appear normal. Pericardium The pericardium is normal by two-dimensional imaging. There is no significant pericardial effusion. CONCLUSIONS Indication Acute CVA rule out standard PLAX and PSAX views could not be obtained. TD apical views also. Best images were from off axis views subcostal. Negative bubble study for any PFO or ASD. Consider MATTHEW if high index of clinical suspicion. Normal LV size and function. Estimated EF of 60 to 65%. Normal RV size and function. Trace ZEYNEP Ballardumanrajwindera (Electronically Signed) Final Date: 23 December 2024 14:37
[2024-12-21 20:00] VITALS: BP 111/72; PULSE 73; RESP 12; TEMP 36.7; O2SAT 97; BMI 20.5
[2024-12-21] MEDS: ATORVASTATIN CALCIUM 20 MG TABLET 40 MG PO (21:08)
[2024-12-22] VITALS: BP 128/79; PULSE 75; RESP 15; TEMP 36.5; O2SAT 92
[2024-12-22 04:00] VITALS: BP 119/82; PULSE 73; RESP 21; TEMP 36.3; O2SAT 92
--- NOTE | 2024-12-22 04:05 | PC.NURSE ---
notified Dr. Paul Woo about patients large swelling on posterior shoulder and urine color. He will come to bedside to assess
[2024-12-22] MEDS: HEPARIN SOD INJ 5000 UNIT/ML VIAL SC ×3 (05:19→21:01)
[2024-12-22 06:00] VITALS: BMI 20.8
[2024-12-22 06:20] LABS: Basophils # (Auto) 0.1 Thou/mm3 (0.0-0.2); Basophils % (Auto) 1 % (0-2.5); Eosinophils # (Auto) 0.2 Thou/mm3 (0.0-0.5); Eosinophils % (Auto) 2 % (0-10); Hematocrit 39.8 % (41.0-53.0); Hemoglobin 13.4 g/dL (13.5-16.0); Immature Granulocytes % (Auto) 1 % (0-0); Immature Granulocytes Auto 0.07 Thou/mm3 (0.00-0.00); Lymphocytes # (Auto) 1.3 Thou/mm3 (1.0-4.8); Lymphocytes % (Auto) 14 % (10-50); Mean Corpuscular HGB Conc 33.7 g/dl (31.0-37.0); Mean Corpuscular Hemoglobin 27.7 pg (25.0-35.0); Mean Corpuscular Volume 82 fL (80-100); Monocytes # (Auto) 1.2 Thou/mm3 (0.0-0.8); Monocytes % (Auto) 13 % (0-12); Neutrophils # (Auto) 6.1 Thou/mm3 (1.8-7.7); Neutrophils % (Auto) 69 % (37-80); Nucleated Red Blood Cell % 0 /100 WBC (0); Platelet Count 366 Thou/mm3 (140-440); RDW Standard Deviation 40.4 fL (35.1-43.9); Red Blood Count 4.83 Miln/mm3 (4.50-5.90); White Blood Count 8.9 Thou/mm3 (3.8-10.6)
[2024-12-22 07:07] LABS: Alanine Aminotransferase 9 U/L (10-49); Albumin, Serum 3.6 gm/dL (3.4-4.8); Albumin/Globulin Ratio 0.9 (1.2-2.2); Alkaline Phosphatase 126 U/L (46-116); Anion Gap 11 (7-16); Aspartate Amino Transferase 14 U/L (0-34); BUN/Creatinine Ratio 15 Ratio (12-20); Bilirubin,Total 0.6 mg/dL (0.3-1.2); Blood Urea Nitrogen 25 mg/dL (9-23); Calcium (Corrected) 9.3 mg/dL (8.5-10.1); Carbon Dioxide 19.2 mMol/L (20.0-31.0); Chloride 110 mMol/L (98-107); Creatinine (Component) 1.7 mg/dL (0.6-1.3); Estimated Creatinine Clearance 38.8 mL/min (>60); Globulin 3.9 gm/dL (2.3-3.5); Glucose 92 mg/dL (74-106); Magnesium 1.9 mg/dL (1.6-2.6); Osmolality,Calculated 283 (275-295); Potassium 3.9 mMol/L (3.4-5.1); Sodium 140 mMol/L (136-145); Total Protein 7.5 gm/dL (5.7-8.2); eGFR 43 See Note
[2024-12-22 08:00] VITALS: BP 111/79; PULSE 67; RESP 21; TEMP 36.3; O2SAT 93
[2024-12-22] MEDS: CLOPIDOGREL BISULFATE 75 MG TABLET PO (08:17)
[2024-12-22] MEDS: ASPIRIN EC 81 MG TABEC PO (08:17)
[2024-12-22] MEDS: cefTRIAXone 2 GM in SODIUM CHLORIDE 0.9% (Popper) 50 ML IV (10:44)
[2024-12-22 12:00] VITALS: BP 104/71; PULSE 55; PULSE 71; RESP 20; TEMP 36.7; O2SAT 94
--- NOTE | 2024-12-22 12:21 | ESPR_ITS ---
<Statement entered by Mainor Lorenzana MD - 12/22/24 13:31> Patient seen and assessed at bedside this morning. Patient slightly lethargic, but is able to answer questions appropriately. Pending cardiac echo. Will continue with aspirin, Plavix and statin for now. This case is obtained. Mainor Lorenzana MD PGY3 Documentation for date of: 12/22/24 Subjective Subjective Interval history: no acute overnight events reported. Pt is seen and examined at beside this morning. Pt is saturating on 2L O2 via NC, pt denies SOB, diziness or chest pain. Pt is alert and orient, is able to speak full sentences, states he ate dinner and some breakfast without difficulty. Pt appears to be somnolent and lethargic and states he wants to rest and sleep. CT of abdomen/pelvis shows right pylenephritis, 5cm staghorn calculi in the righ urethropelvic junction and 3.2 cm bladder calculi. Urology consult is placed, pending recommendations. For pyelonephritis will start pt on rocephin. Vitals are stable and labs are within normal limits. Pt has no other complaints. Exam Vital Signs Temp Pulse Resp BP Pulse Ox O2 Del Method O2 Flow Rate 97.3 F 67 21 H 111/79 93 L Nasal Cannula 3 12/22/24 08:00 12/22/24 08:00 12/22/24 08:00 12/22/24 08:00 12/22/24 08:00 12/22/24 08:00 12/22/24 08:00 Narrative Exam GENERAL: A&Ox3 . Awake, calm, unshaven, poor hygeine HEENT: Atraumatic, Normocephalic. mucous membranes moist. Eyes open, symmetrical, & clear HEART: Normal Heart Sounds LUNGS: Clear to auscultation with no wheezing or crackles. ABDOMEN: soft, non-distended, non-tender, no guarding or rebound tenderness SKIN: No Rash or ecchymoses, skin graft scar on face and left shoulder EXTREMITIES: No edema, tenderness, able to move all 4 extremities, pedal pulses palpated NEURO:? ? MENTAL STATUS:?AAOx3 ? LANG/SPEECH: Fluent, intact naming, repetition & comprehension ? CRANIAL NERVES: ? II: Pupils equal and reactive, normal vision bilaterally ? III, IV, : EOM intact, no gaze preference or deviation ? V: normal ? VII: no facial asymmetry ? VIII: normal hearing to speech ? MOTOR: 5/5 in both upper and lower extremities strength ? SENSORY: Normal to touch and sensation ? COORD: normal finger to nose test, no tremor, no dysmetria Objective Labs 12/23/24 04:17 12/23/24 04:17 Labs: Laboratory Results - last 24 hr 12/21/24 12/22/24 15:14 05:42 WBC 8.9 RBC 4.83 Hgb 13.4 L Hct 39.8 L MCV 82 MCH 27.7 MCHC 33.7 RDW Std Deviation 40.4 Plt Count 366 D Neut % (Auto) 69 Lymph % (Auto) 14 [place] % (Auto) 13 H Eos % (Auto) 2 Baso % (Auto) 1 Neut # (Auto) 6.1 Lymph # (Auto) 1.3 [place] # (Auto) 1.2 H Eos # (Auto) 0.2 Baso # (Auto) 0.1 Immature Gran # (Auto) 0.07 H Absolute Nucleated RBC 0.00 Immature Gran % 1 H Nucleated RBC % 0 Sodium 140 Potassium 3.9 Chloride 110 H Carbon Dioxide 19.2 L Anion Gap 11 BUN 25 H Creatinine 1.7 H Estim Creat Clear Calc 38.8 L eGFR 43 L BUN/Creatinine Ratio 15 Glucose 92 Calculated Osmolality 283 Calcium 9.0 Corrected Calcium 9.3 Phosphorus 3.0 Magnesium 1.9 Total Bilirubin 0.6 AST 14 ALT 9 L Alkaline Phosphatase 126 H Total Protein 7.5 Albumin 3.6 Globulin 3.9 H Albumin/Globulin Ratio 0.9 L Syphilis Serology Nonreactive Quality Measures Quality Measures none Advance care planning discussed with:: patient Assessment & Plan Assessment Current Active Medications: Generic Name Dose Route Start Last Admin Trade Name Freq PRN Reason Stop Dose Admin Acetaminophen 650 mg 12/22/24 08:00 Acetaminophen 325 Mg Tablet PO 01/19/25 17:08 Q6H PRN Fever >100.3 Aspirin 81 mg 12/21/24 09:00 12/22/24 08:17 Aspirin Ec 81 Mg Tabec PO 01/20/25 08:59 81 mg DAILY RICKY Administration Atorvastatin Calcium 40 mg 12/20/24 21:00 12/21/24 21:08 Atorvastatin Calcium 20 Mg Tablet PO 01/19/25 20:59 40 mg HS RICKY Administration Clopidogrel Bisulfate 75 mg 12/22/24 09:00 12/22/24 08:17 Clopidogrel Bisulfate 75 Mg Tablet PO 01/21/25 08:59 75 mg QDAY RICKY Administration Heparin Sodium (Porcine) 5,000 unit 12/20/24 22:00 12/22/24 05:19 Heparin Sod Inj 5000 Unit/Ml Vial SC 01/03/25 21:59 5,000 unit Q8HR RICKY Administration Ceftriaxone Sodium/Dextrose 2 gm in 50 mls @ 100 mls/hr 12/23/24 09:00 Rocephin/D5w 2gm IV 12/30/24 08:59 QDAY RICKY Ondansetron HCl 4 mg 12/20/24 15:37 Ondansetron Inj 2 Mg/Ml Inj 2 Ml IV 01/19/25 15:36 Q4HR PRN NAUSEA OR VOMITING Sennosides 1 tab 12/20/24 17:09 Senna Tablet PO 01/19/25 17:08 BID PRN CONSTIPATION Protocol Plan Mr. Andre is a 69-year-old male with no significant past medical history presented to the ED due unsteady gait and stroke like symptoms. Pt is admitted to telemetry for stroke work up. #Acute CVA -LKW: 9pm on 12/19/24 -NIHSS Score: 2 -pre morbid rank scale: 1 Points = No significant disability despite symptoms; able to carry out all usual duties and activities -Tele neuro consulted, recommendations appreciated -Head CTA : Occlusion of the right posterior cerebral artery junction P1 P2 segments with distal filling -Head CT : Suspicious for early acute nonhemorrhagic infarct in the right occipital lobe -?MRI brain with MRA : Large acute infarct right posterior temporal right occipital lobe, Smaller acute embolic type infarcts right basal ganglia right posterior parietal lobe Absent filling right posterior cerebral artery Plan: - Neuro checks q4HR - Keep head of bed elevated at 30 degrees - Loading dose Aspirin 325 mg x1 given in the ED - Aspirin 81mg daily, plavix and statin ordered -?limit sedating meds - Euglycemia and Avoid Hyperthermia (PRN Acetaminophen) -?Echo with bubble study ordered - follow up lipid panel, HbA1c, TSH with free T4 - Referral to speech therapy (Pt passed bedside swallow screen and has been started on dysphagia 2 diet) -In house neurologist Dr. Salas consulted #Pylonephritis -Pt complains of dysuria -Urine analysis is positive for leukocyte esterase and pyuria -Urine cultures pending -Started pt on Rocephin 2gm daily 12/22- #SHEILA vs. CKD #Hydronephrosis, advance -Pt's Cr is 1.9 and GFR 38, BUN 24, there is no record of pt's baseline Cr and GFR -SHEILA Likely pre-renal due to poor oral hydration -Ultrasound of the kidneys showed advanced right hydronephrosis, moderate bilateral renal parenchymal scar formation, 3.9 cm bladder calculus -CT abdomen/pelvis - 5cm staghorn calculi in right ureteropelvic junction and 3.2 cm bladder calculi Plan: -Consult to urology Dr. Good placed, face sheet faxed, pending recommendations -Monitor daily CMP -Avoid nephrotoxic and renally dose medications #10 mm calcification in the right thyroid gland -TSH 0.47 Free T4 1.15 -Pt is recommended to repeat labs in 3 months and follow up outpatient with primary care Health Maintenance Disposition: Telemetry for Acute CVA DVT Prophylaxis: heparin SC Q8h GI Prophylaxis: not indicated Diet: dysphagia 2 diet (may take meds with bedside nurse swallow screen) Lines: Peripheral lines Code status: Full Assessment and plan discussed with my senior resident Dr. Lorenzana & attending physician Dr. Marlena Booth (PGY-1)- Internal medicine resident Attending Provider Attestation/Addendum Marily Abreu DO, attest that I was physically present for the bello portions of the service and evaluated the patient with the resident and I reviewed and discussed the case with the resident and agree with the resident's findings and plans of care as documented above Patient seen and evaluated this AM. Echo obtained. Patient continues to appear to have left lateral hemianopia on exam. B/l strength and gross sensation is intact. Patient has no active complaints. Pending echo results. CT abd/pelvis shows right staghorn calculus with hydronephrosis and old ureteral stent, as well as bladder calculus. THere is some fat stranding surrounding the right kidney consistent with right pyelonephritis. Ucx still pending. Will empirically treat with rocephin 2g IV daily. Pending urology recommendations Will also f/u with neurology recommendations.
[2024-12-22 16:00] VITALS: BP 111/76; PULSE 66; PULSE 67; RESP 20; TEMP 36.3; O2SAT 97
[2024-12-22 20:00] VITALS: BP 118/67; PULSE 75; RESP 16; TEMP 36.3; O2SAT 97
[2024-12-22] MEDS: ATORVASTATIN CALCIUM 20 MG TABLET 40 MG PO (21:01)
[2024-12-23 04:00] VITALS: BP 111/74; PULSE 61; RESP 17; TEMP 36.3; O2SAT 95
[2024-12-23] MEDS: HEPARIN SOD INJ 5000 UNIT/ML VIAL SC ×3 (05:15→21:40)
[2024-12-23 05:33] LABS: Basophils # (Auto) 0.1 Thou/mm3 (0.0-0.2); Basophils % (Auto) 1 % (0-2.5); Eosinophils # (Auto) 0.1 Thou/mm3 (0.0-0.5); Eosinophils % (Auto) 2 % (0-10); Hematocrit 37.5 % (41.0-53.0); Hemoglobin 12.5 g/dL (13.5-16.0); Immature Granulocytes % (Auto) 1 % (0-0); Immature Granulocytes Auto 0.04 Thou/mm3 (0.00-0.00); Lymphocytes # (Auto) 1.6 Thou/mm3 (1.0-4.8); Lymphocytes % (Auto) 23 % (10-50); Mean Corpuscular HGB Conc 33.3 g/dl (31.0-37.0); Mean Corpuscular Hemoglobin 27.4 pg (25.0-35.0); Mean Corpuscular Volume 82 fL (80-100); Monocytes # (Auto) 0.8 Thou/mm3 (0.0-0.8); Monocytes % (Auto) 12 % (0-12); Neutrophils # (Auto) 4.2 Thou/mm3 (1.8-7.7); Neutrophils % (Auto) 62 % (37-80); Nucleated Red Blood Cell % 0 /100 WBC (0); Platelet Count 511 Thou/mm3 (140-440); RDW Standard Deviation 40.1 fL (35.1-43.9); Red Blood Count 4.56 Miln/mm3 (4.50-5.90); White Blood Count 6.7 Thou/mm3 (3.8-10.6)
[2024-12-23 05:47] VITALS: BMI 20.8
[2024-12-23 06:44] LABS: Alanine Aminotransferase 8 U/L (10-49); Albumin, Serum 3.5 gm/dL (3.4-4.8); Albumin/Globulin Ratio 0.9 (1.2-2.2); Alkaline Phosphatase 124 U/L (46-116); Anion Gap 10 (7-16); Aspartate Amino Transferase 14 U/L (0-34); BUN/Creatinine Ratio 14 Ratio (12-20); Bilirubin,Total 0.6 mg/dL (0.3-1.2); Blood Urea Nitrogen 25 mg/dL (9-23); Calcium 8.8 mg/dL (8.3-10.6); Calcium (Corrected) 9.2 mg/dL (8.5-10.1); Chloride 108 mMol/L (98-107); Creatinine (Component) 1.8 mg/dL (0.6-1.3); Estimated Creatinine Clearance 36.6 mL/min (>60); Globulin 3.8 gm/dL (2.3-3.5); Glucose 102 mg/dL (74-106); Magnesium 1.7 mg/dL (1.6-2.6); Osmolality,Calculated 278 (275-295); Phosphorous 2.1 mg/dL (2.4-5.1); Potassium 3.8 mMol/L (3.4-5.1); Sodium 137 mMol/L (136-145); Total Protein 7.3 gm/dL (5.7-8.2); eGFR 40 See Note
[2024-12-23 08:00] VITALS: BP 109/74; PULSE 64; PULSE 96; RESP 15; TEMP 36.3; O2SAT 99
[2024-12-23] MEDS: ASPIRIN EC 81 MG TABEC PO (08:26)
[2024-12-23] MEDS: cefTRIAXone/D5w 2gm 2 GM/50 ML BAG IV (08:26)
[2024-12-23] MEDS: CLOPIDOGREL BISULFATE 75 MG TABLET PO (08:26)
[2024-12-23 12:00] VITALS: BP 108/71; PULSE 65; PULSE 66; RESP 14; TEMP 36.2; O2SAT 98
[2024-12-23 16:00] VITALS: BP 105/74; PULSE 76; PULSE 77; RESP 14; TEMP 36.6; O2SAT 98
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
[2024-12-23 20:00] VITALS: BP 104/75; PULSE 76; RESP 14; TEMP 36.5; O2SAT 98
[2024-12-23] MEDS: ATORVASTATIN CALCIUM 20 MG TABLET 40 MG PO (21:39)
--- NOTE | 2024-12-23 23:57 | PD.VPROG1 ---
Telemedicine visit statement This visit was conducted with the use of interactive audio and video telecommunications system that permits real time communication between the patient and the provider. Patient's verbal consent for virtual visit was obtained on 12/23/24 at 2357. Documentation for date of: 12/23/24 Subjective Subjective Interval history: Patient was seen virtually. Continue to have visual symptoms, denies any headache or dizziness. Tolerating oral diet well. Still has high colored urine and abdominal ultrasound showed 3 cm calculus in the bladder. He denies any symptoms suggestive of urinary tract infection or pain. Virtual exam Vital Signs Temp Pulse Resp BP Pulse Ox O2 Del Method O2 Flow Rate 97.7 F 76 104 H 104/75 98 Nasal Cannula 2 12/23/24 20:00 12/23/24 20:00 12/23/24 20:00 12/23/24 20:00 12/23/24 20:00 12/23/24 20:00 12/23/24 20:00 Objective Labs 12/23/24 04:17 12/23/24 04:17 Labs: Laboratory Results - last 24 hr 12/23/24 04:17 WBC 6.7 RBC 4.56 Hgb 12.5 L Hct 37.5 L MCV 82 MCH 27.4 MCHC 33.3 RDW Std Deviation 40.1 Plt Count 511 H D Neut % (Auto) 62 Lymph % (Auto) 23 [place] % (Auto) 12 Eos % (Auto) 2 Baso % (Auto) 1 Neut # (Auto) 4.2 Lymph # (Auto) 1.6 [place] # (Auto) 0.8 Eos # (Auto) 0.1 Baso # (Auto) 0.1 Immature Gran # (Auto) 0.04 H Absolute Nucleated RBC 0.00 Immature Gran % 1 H Nucleated RBC % 0 Sodium 137 Potassium 3.8 Chloride 108 H Carbon Dioxide 19.0 L Anion Gap 10 BUN 25 H Creatinine 1.8 H Estim Creat Clear Calc 36.6 L eGFR 40 L BUN/Creatinine Ratio 14 Glucose 102 Calculated Osmolality 278 Calcium 8.8 Corrected Calcium 9.2 Phosphorus 2.1 L Magnesium 1.7 Total Bilirubin 0.6 AST 14 ALT 8 L Alkaline Phosphatase 124 H Total Protein 7.3 Albumin 3.5 Globulin 3.8 H Albumin/Globulin Ratio 0.9 L Assessment & Plan Problem List (1) Cerebrovascular accident: Status: Acute Assessment and plan: Patient has left homonymous hemianopsia continue with aspirin, Plavix and statin Echocardiogram: Negative bubble study for any PFO or ASD. Consider MATTHEW if high index of clinical suspicion. Normal LV size and function. Estimated EF of 60 to 65%. Normal RV size and function. Trace TR MRI brain showed acute infarction involving the right occipital area (2) Hematuria: Status: Acute Assessment and plan: With a bladder calculus
[2024-12-24] VITALS: BP 114/77; PULSE 66; RESP 12; TEMP 36.3; O2SAT 98
[2024-12-24 04:00] VITALS: BP 101/61; PULSE 71; RESP 16; TEMP 36.5; O2SAT 95
[2024-12-24] MEDS: HEPARIN SOD INJ 5000 UNIT/ML VIAL SC ×3 (05:28→21:09)
[2024-12-24 06:00] VITALS: BMI 20.8
[2024-12-24 08:00] VITALS: BP 99/70; PULSE 76; PULSE 80; RESP 12; TEMP 36.7; O2SAT 94
[2024-12-24] MEDS: cefTRIAXone/D5w 2gm 2 GM/50 ML BAG IV (08:18)
[2024-12-24] MEDS: CLOPIDOGREL BISULFATE 75 MG TABLET PO (08:19)
[2024-12-24] MEDS: ASPIRIN EC 81 MG TABEC PO (08:19)
[2024-12-24 09:25] VITALS: BMI 20.8
--- NOTE | 2024-12-24 09:25 | PC.SS ---
SS follow up note; Pending DR. Good evaluation. Patient will return back home when medically cleared.
[2024-12-24 10:00] LABS: Basophils # (Auto) 0.1 Thou/mm3 (0.0-0.2); Basophils % (Auto) 1 % (0-2.5); Eosinophils # (Auto) 0.2 Thou/mm3 (0.0-0.5); Eosinophils % (Auto) 2 % (0-10); Hematocrit 34.9 % (41.0-53.0); Hemoglobin 11.9 g/dL (13.5-16.0); Immature Granulocytes % (Auto) 1 % (0-0); Immature Granulocytes Auto 0.08 Thou/mm3 (0.00-0.00); Lymphocytes # (Auto) 1.3 Thou/mm3 (1.0-4.8); Lymphocytes % (Auto) 17 % (10-50); Mean Corpuscular HGB Conc 34.1 g/dl (31.0-37.0); Mean Corpuscular Hemoglobin 27.5 pg (25.0-35.0); Mean Corpuscular Volume 81 fL (80-100); Monocytes # (Auto) 0.9 Thou/mm3 (0.0-0.8); Monocytes % (Auto) 12 % (0-12); Neutrophils # (Auto) 5.2 Thou/mm3 (1.8-7.7); Neutrophils % (Auto) 67 % (37-80); Nucleated Red Blood Cell % 0 /100 WBC (0); Platelet Count 489 Thou/mm3 (140-440); RDW Standard Deviation 39.2 fL (35.1-43.9); Red Blood Count 4.33 Miln/mm3 (4.50-5.90); White Blood Count 7.7 Thou/mm3 (3.8-10.6)
[2024-12-24 12:00] VITALS: BP 113/76; PULSE 71; PULSE 89; RESP 16; TEMP 36.5; O2SAT 95
[2024-12-24 12:31] LABS: Albumin, Serum 3.3 gm/dL (3.4-4.8); Albumin/Globulin Ratio 0.8 (1.2-2.2); Alkaline Phosphatase 115 U/L (46-116); Anion Gap 8 (7-16); Aspartate Amino Transferase 17 U/L (0-34); BUN/Creatinine Ratio 13 Ratio (12-20); Bilirubin,Total 0.3 mg/dL (0.3-1.2); Blood Urea Nitrogen 24 mg/dL (9-23); Calcium 8.6 mg/dL (8.3-10.6); Calcium (Corrected) 9.2 mg/dL (8.5-10.1); Carbon Dioxide 20.6 mMol/L (20.0-31.0); Chloride 105 mMol/L (98-107); Creatinine (Component) 1.8 mg/dL (0.6-1.3); Estimated Creatinine Clearance 36.6 mL/min (>60); Glucose 131 mg/dL (74-106); Osmolality,Calculated 274 (275-295); Potassium 3.6 mMol/L (3.4-5.1); Sodium 134 mMol/L (136-145); Total Protein 7.3 gm/dL (5.7-8.2); eGFR 40 See Note
[2024-12-24 12:44] LABS: Alanine Aminotransferase 11 U/L (10-49)
[2024-12-24] MEDS: PIPER/TAZO 3.375 GM PREMIX 3.375 GM/50 ML BAG IV ×2 (12:55→21:09)
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
[2024-12-24 16:00] VITALS: BP 117/77; PULSE 65; PULSE 74; RESP 19; TEMP 36.5; O2SAT 94
--- NOTE | 2024-12-24 18:49 | ESPR_ITS ---
RE: KEENAN MURILLO : 1955 DATE OF SERVICE: 12/24/2024 CHIEF COMPLAINT: Duplicated collecting system right side with significant hydronephrosis with 5 cm staghorn calculi, right side and 3.2 cm bladder stone and fragmented stent. COMORBID CONDITIONS: 1. Acute CVA. The patient is being consulted for Teleneurology, who recommended MRI to rule out CVA. 2. SHEILA versus CKD with creatinine of 1.9, GFR 38 and BUN 24. 3. A 10 mm calcification in the right thyroid gland. Past medical history, family history, review of the system, personal history, please refer to patient's history form dated 12/20/2024, it is in HPI, in EMR. This is a 69-year-old gentleman. He is accompanied by his mother and his stepbrother is also present. He has a history of alcohol and methamphetamine use. He came to the emergency room due to unsteady gait and slow response. The patient has history of stone disease. He went to a urologist in [place] about 5-6 years ago and had a placement of stent. Stent is at this time fragmented and calcified. CAT scan of the abdomen and pelvis was done with contrast on 12/21/2024, which is reviewed by me and impression is duplicated right collecting system with significant hydronephrosis with 5 cm staghorn calculi and 3.2 cm stone in the bladder. RECOMMENDATION: CAT scan with the stone protocol and KUB. His stent is calcified and fragmented patient is going to need cystoscopy right retrograde pyelogram ureteroscopy laser stone fragmentation removal of the stent the patient is also recommended cysto, laser stone fragmentation of the bladder stone and bladder stone evacuation and my recommendation is also a MAG3 renal scan with Lasix to find out if he has a function on the right kidney. If there is no function, he is going to need a right Nephro ureterectomy then stent will be removed. The patient has declined permission for surgical intervention at this time. For his BPH with urinary obstruction recommendation is tamsulosin 0.4 mg p.o. daily finasteride 5 mg p.o. daily thank you for the consultation I will continue to follow the patient with you and I am also giving him appointment to follow-up with me in urology office thank you DT: 16:48:17 TT: 18:48:00 Ref: - TID: [id number] MTDD
[2024-12-24 20:00] VITALS: BP 90/60; PULSE 67; PULSE 70; RESP 18; TEMP 36.4; O2SAT 97
[2024-12-24] MEDS: ATORVASTATIN CALCIUM 20 MG TABLET 40 MG PO (21:09)
[2024-12-25] VITALS: BP 90/65; PULSE 67; PULSE 75; RESP 17; TEMP 36.3; O2SAT 98
[2024-12-25 04:00] VITALS: BP 100/61; PULSE 66; PULSE 68; RESP 18; TEMP 36.1; O2SAT 95
[2024-12-25 05:38] VITALS: BMI 20.8
[2024-12-25] MEDS: PIPER/TAZO 3.375 GM PREMIX 3.375 GM/50 ML BAG IV ×2 (05:44→13:44)
[2024-12-25] MEDS: HEPARIN SOD INJ 5000 UNIT/ML VIAL SC ×2 (05:47→13:44)
[2024-12-25 08:00] VITALS: BP 97/71; PULSE 71; PULSE 77; RESP 15; TEMP 36.6; O2SAT 93
[2024-12-25] MEDS: ASPIRIN EC 81 MG TABEC PO (08:31)
[2024-12-25] MEDS: CLOPIDOGREL BISULFATE 75 MG TABLET PO (08:31)
[2024-12-25] MEDS: POTASSIUM CHLORIDE 20 mEq TABCR 40 MEQ PO (10:02)
--- NOTE | 2024-12-25 10:53 | ESPR_ITS ---
Documentation for date of: 12/25/24 Subjective Subjective Interval history: Patient seen and examined at bedside. No acute overnight events. Apart from homonymous hemianopsia, has no other focal neurologic deficits. Cleared for discharge standpoints, will continue on aspirin, Plavix and atorvastatin. Will DC Plavix after 21 days. Follow-up with neurology as an outpatient. Exam Vital Signs Temp Pulse Resp BP Pulse Ox O2 Del Method O2 Flow Rate 97.8 F 71 15 97/71 93 L Room Air 2 12/25/24 08:00 12/25/24 08:00 12/25/24 08:00 12/25/24 08:00 12/25/24 08:00 12/25/24 08:00 12/24/24 00:00 Narrative Exam GENERAL: AAOX3 NEURO: No dysarthria, no aphasia, left hemianopsia, strength B/L upper and lower extremities 5/5, no dysmetria, gait not assessed, able to move all 4 extremities spontaneously HEENT: Dry mucosa. Eyes open, symmetrical, & clear CARDIO: No chest pain on palpation. Heart RRR, no obvious murmurs PULM: No noted coughing/dyspnea. Lungs CTA B/L, no R/W/R GI: Abdomen soft, nondistended, no pain on palpation. BSx4 URO/LANDSCAPING MANAGER:: No further abnormalities noted. SKIN/MSK/EXT: Face skin graft zygomatic area and nose, skin thickening secondary to scar longo in chest Objective Labs 12/25/24 10:18 12/25/24 10:18 Labs: Laboratory Results - last 24 hr 12/24/24 09:52 Sodium 134 L Potassium 3.6 Chloride 105 Carbon Dioxide 20.6 Anion Gap 8 BUN 24 H Creatinine 1.8 H Estim Creat Clear Calc 36.6 L eGFR 40 L BUN/Creatinine Ratio 13 Glucose 131 H Calculated Osmolality 274 L Calcium 8.6 Corrected Calcium 9.2 Total Bilirubin 0.3 AST 17 ALT 11 Alkaline Phosphatase 115 Total Protein 7.3 Albumin 3.3 L Globulin 4.0 H Albumin/Globulin Ratio 0.8 L Quality Measures Quality Measures VTE prophylaxis Advance care planning discussed with:: patient Assessment & Plan Assessment Current Active Medications: Generic Name Dose Route Start Last Admin Trade Name Freq PRN Reason Stop Dose Admin Acetaminophen 650 mg 12/22/24 08:00 Acetaminophen 325 Mg Tablet PO 01/19/25 17:08 Q6H PRN Fever >100.3 Aspirin 81 mg 12/21/24 09:00 12/25/24 08:31 Aspirin Ec 81 Mg Tabec PO 01/20/25 08:59 81 mg DAILY RICKY Administration Atorvastatin Calcium 40 mg 12/20/24 21:00 12/24/24 21:09 Atorvastatin Calcium 20 Mg Tablet PO 01/19/25 20:59 40 mg HS RICKY Administration Clopidogrel Bisulfate 75 mg 12/22/24 09:00 12/25/24 08:31 Clopidogrel Bisulfate 75 Mg Tablet PO 01/21/25 08:59 75 mg QDAY RICKY Administration Heparin Sodium (Porcine) 5,000 unit 12/20/24 22:00 12/25/24 05:47 Heparin Sod Inj 5000 Unit/Ml Vial SC 01/03/25 21:59 5,000 unit Q8HR RICKY Administration Piperacillin/Tazobactam/Dextrose 3.375 gm in 50 mls @ 12.5 mls/hr 12/24/24 22:00 12/25/24 05:44 Zosyn IV 12/31/24 21:59 12.5 mls/hr Q8HR RICKY Administration Ondansetron HCl 4 mg 12/20/24 15:37 Ondansetron Inj 2 Mg/Ml Inj 2 Ml IV 01/19/25 15:36 Q4HR PRN NAUSEA OR VOMITING Sennosides 1 tab 12/20/24 17:09 Senna Tablet PO 01/19/25 17:08 BID PRN CONSTIPATION Protocol Plan Summary: The patient is a 69year old male with a past medical history significant for hypertension, methamphetamine use disorder, who came to the ED with chief complaint of unsteady gait and imbalance and was admitted to [facility] for a stroke rule out. 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 CT head shows suspicious for early acute nonhemorrhagic infarct in the right occipital lobe. CTA head/neck showed occlusion of the right posterior cerebral artery junction P1 P2 segment with distant filling. Brain MRI showed large acute infarct in right posterior temporal and right occipital lobe. Small acute embolic type infarct in the right basal ganglia with right posterior parietal lobe, absent filling of right posterior cerebral artery. Labs were unremarkable Echocardiogram with bubble- negative Plan: ? Continue Aspirin, plavix and atorvastatin ? Follow up with Dr Salas within 2 weeks of discharge #Pyelonephritis #Bladder calculi #SHEILA versus CKD - Management per primary team Case was discussed with attending physician, Dr Josue Padron MD PGY-1 Disclaimer: This note was dictated by speech recognition. Minor errors in human service coordinator may be present due to voice recognition software. Attending Provider Attestation/Addendum I personally have seen and examined the patient and agreed with resident's findings, assessment and plan of care. stable henderson/c on current mgt.
[2024-12-25 11:01] LABS: Basophils # (Auto) 0.1 Thou/mm3 (0.0-0.2); Basophils % (Auto) 1 % (0-2.5); Eosinophils # (Auto) 0.2 Thou/mm3 (0.0-0.5); Eosinophils % (Auto) 3 % (0-10); Hematocrit 33.7 % (41.0-53.0); Hemoglobin 11.3 g/dL (13.5-16.0); Immature Granulocytes % (Auto) 1 % (0-0); Immature Granulocytes Auto 0.12 Thou/mm3 (0.00-0.00); Lymphocytes # (Auto) 1.5 Thou/mm3 (1.0-4.8); Lymphocytes % (Auto) 17 % (10-50); Mean Corpuscular HGB Conc 33.5 g/dl (31.0-37.0); Mean Corpuscular Hemoglobin 27.8 pg (25.0-35.0); Mean Corpuscular Volume 83 fL (80-100); Monocytes # (Auto) 1.2 Thou/mm3 (0.0-0.8); Monocytes % (Auto) 14 % (0-12); Neutrophils # (Auto) 5.6 Thou/mm3 (1.8-7.7); Neutrophils % (Auto) 64 % (37-80); Nucleated Red Blood Cell % 0 /100 WBC (0); Platelet Count 473 Thou/mm3 (140-440); RDW Standard Deviation 40.6 fL (35.1-43.9); Red Blood Count 4.06 Miln/mm3 (4.50-5.90); White Blood Count 8.7 Thou/mm3 (3.8-10.6)
[2024-12-25 11:17] LABS: Alanine Aminotransferase 17 U/L (10-49); Albumin, Serum 3.1 gm/dL (3.4-4.8); Albumin/Globulin Ratio 0.8 (1.2-2.2); Alkaline Phosphatase 111 U/L (46-116); Anion Gap 6 (7-16); Aspartate Amino Transferase 30 U/L (0-34); BUN/Creatinine Ratio 12 Ratio (12-20); Bilirubin,Total 0.6 mg/dL (0.3-1.2); Blood Urea Nitrogen 23 mg/dL (9-23); Calcium 8.4 mg/dL (8.3-10.6); Calcium (Corrected) 9.1 mg/dL (8.5-10.1); Carbon Dioxide 21.9 mMol/L (20.0-31.0); Chloride 105 mMol/L (98-107); Creatinine (Component) 1.9 mg/dL (0.6-1.3); Estimated Creatinine Clearance 34.7 mL/min (>60); Glucose 104 mg/dL (74-106); Magnesium 1.7 mg/dL (1.6-2.6); Osmolality,Calculated 270 (275-295); Phosphorous 2.2 mg/dL (2.4-5.1); Potassium 4.1 mMol/L (3.4-5.1); Sodium 133 mMol/L (136-145); Total Protein 7.1 gm/dL (5.7-8.2); eGFR 38 See Note
--- NOTE | 2024-12-25 11:59 | ESDS_ITS ---
<Statement entered by Jayme Ackerman MD - 12/31/24 13:20> I reviewed above note and agree with findings and plans. I have also personally examined the patient with medicine team and went over assessment and plan with medical team including editing internship and resident physician. Planned Discharge Date 12/25/24 DS: Providers Provider Date of admission: 12/20/24 17:03 Primary care physician: Physician No Primary/Family Admitting Provider: Marily Mendiola DO Attending Provider on Admission: Jayme Ackerman MD Consults: 12/20/24 15:37 Consult to Neurology / Tele-Neurology Routine Comment: Consulting Provider: [facility] 12/20/24 17:16 Consult to Neurology / Tele-Neurology Stat Comment: Consulting Provider: Demetri Salas 12/20/24 17:17 Referral Physical Therapy Stat Comment: Physician Instructions: Referral Speech Therapy Stat Comment: 12/21/24 16:13 Consult to Urology Stat Comment: stones Consulting Provider: Julio Cesar Good Attending Provider on DC: Jayme Ackerman MD Discharging Provider: Jayme Ackerman MD Anticipated date of discharge: 12/25/24 DS: Diagnosis Problem List Completed Was Problem List Reviewed/Reconciled?: Yes Hospital Course Hospital Course Hospital course: Mr. Andre is a 69-year-old male with no past medical history who presented to [facility] emergency department on 12/20/2024 with strokelike symptoms. Patient was admitted to the hospital for CVA workup further. Teleneurology was consulted in ED, CT scan of the head was suspicious for early acute nonhemorrhagic infarct in right occipital lobe, CTA head showed occlusion of right posterior cerebral artery junction P1 P2 segments with distal filling. Patient was admitted to telemetry floor, was started on aspirin Plavix and high intensity atorvastatin in-house neurology was consulted. Furthermore patient's MRI of brain showed Large acute infarct right posterior temporal right occipital lobe, Smaller acute embolic type infarcts right basal ganglia right posterior parietal lobe. Absent filling right posterior cerebral artery. Echocardiogram was negative for bubble study with no systolic or diastolic dysfunction. Patient's hospital course was also complicated with ESBL pyelonephritis for which patient was given IV antibiotics, patient was found to have 5 cm staghorn calculi at right ureteropelvic junction and 3.2 cm bladder calculi, urologist Dr. Good was consulted. Urology evaluated the patient patient declined any surgical intervention for now, urology recommended tamsulosin 0.4 mg and finasteride 5 mg p.o. with outpatient follow-up. Patient improved with the progression of hospital course, further plan is to discharge patient on Bactrim, aspirin, atorvastatin and Plavix, patient to follow-up with primary care physician in 2 weeks, urology in 1 to 2 weeks and neurologist in 1 to 2 weeks. Patient to complete p.o. antibiotic course for urinary tract infection. Patient instructed to follow-up outpatient further right thyroid gland calcifications. Patient responded well to the hospital treatment and patient is stable for discharge. Discharge Recommendations -Follow up with primary care with in 2 weeks, If you do not have a primary care you can follow up with us at the [facility] by calling [phone] -Follow up with the urologist Dr. Good outpatient -You have been prescribed antibiotics for your UTI for additional 6 days, please complete the course -Follow up with neurologist Dr. Salas outpatient -If your symptoms return or worsen, please return to the ED Hospitalization Diagnosis #Acute right large temporal and basal ganglia stroke #Embolic type infarct #Acute ischemic stroke. #ESBL Pylonephritis. #SHEILA vs CKD. #Hydronephrosis, advance. #Calculus in bladder. #Staghorn calculi. #10 mm calcification in the right thyroid gland. Assessment and plan discussed with my attending physician Dr. Meka Booth (PGY-1)- Internal medicine resident Time Spent with Patient Time attestation: Total time spent providing and/or coordinating discharge services: Time spent: Greater than 30 minutes Quality: Stroke Pt Provided Written Stroke Discharge Instructions: Yes Exam Vital Signs Temp Pulse Resp BP Pulse Ox O2 Del Method O2 Flow Rate 97.8 F 71 15 97/71 93 L Room Air 2 12/25/24 08:00 12/25/24 08:00 12/25/24 08:00 12/25/24 08:00 12/25/24 08:00 12/25/24 08:00 12/24/24 00:00 Narrative Exam GENERAL: A&Ox3 . Awake, calm, unshaven, poor hygeine HEENT: Atraumatic, Normocephalic. mucous membranes moist. Eyes open, symmetrical, & clear HEART: Normal Heart Sounds LUNGS: Clear to auscultation with no wheezing or crackles. ABDOMEN: soft, non-distended, non-tender, no guarding or rebound tenderness SKIN: No Rash or ecchymoses, skin graft scar on face and left shoulder EXTREMITIES: No edema, tenderness, able to move all 4 extremities, pedal pulses palpated NEURO:? ? MENTAL STATUS:?AAOx3 ? LANG/SPEECH: Fluent, intact naming, repetition & comprehension ? CRANIAL NERVES: ? II: Pupils equal and reactive, Left hemianopsia ? III, IV, : EOM intact, no gaze preference or deviation ? V: normal ? VII: no facial asymmetry ? VIII: normal hearing to speech ? MOTOR: 5/5 in both upper and lower extremities strength ? SENSORY: Normal to touch and sensation ? COORD: normal finger to nose test, no tremor, no dysmetria Discharge Plan Plan Patient Disposition: HOME (Self Care) Disposition Comment: Stable Care Plan Goals: -Follow up with primary care with in 2 weeks, If you do not have a primary care you can follow up with us at the [facility] by calling [phone] -Follow up with the urologist Dr. Good outpatient -You have been prescribed antibiotics for your UTI for additional 6 days, please complete the course -Follow up with neurologist Dr. Salas outpatient -If your symptoms return or worsen, please return to the ED Prescriptions/Referrals Prescriptions/Med Rec: New sulfamethoxazole-trimethoprim [Bactrim DS] 800-160 mg tablet 1 tab PO BID 6 Days Qty: 12 0RF aspirin [Ecotrin Low Strength] 81 mg Tablet,Delayed Release (Dr/Ec) 81 mg PO DAILY 30 Days Qty: 30 3RF atorvastatin 40 mg tablet 40 mg PO HS 30 Days Qty: 30 3RF clopidogrel 75 mg Tablet 75 mg PO QDAY 17 Days Qty: 17 0RF Referrals: Julio Cesar Good MD [Physician] - No Primary/Family,Physician [Primary Care Provider] - Demetri Salas MD [Physician] - Patient/Caregiver Discharge Instructions Education Materials: What is Hematuria?, Risk Factors for Stroke Print Language: Kyrgyz Stand Alone Forms: Shaunna Award Info., Patient Portal Info Letter Discharge Order Discharge Orders: Discharge (Routine); Ordered 12/25/24 Ordered By: Lima Booth Quality Discharge Quality Measures VTE prophylaxis
[2024-12-25 12:00] VITALS: BP 102/62; PULSE 62; PULSE 67; RESP 17; TEMP 36.1; O2SAT 97
[2024-12-25 16:00] VITALS: BP 97/64; PULSE 67; PULSE 73; RESP 11; TEMP 36.4; O2SAT 100
[2024-12-28 06:58] LABS: HIV Ag/Ab, 4th Gen NON-REACTIVE; Homocysteine* 23.8 umol/L (<11.4)
== END 2024-12-25 17:32 | disposition home or self-care (01) | DRG 65 ==
LOC: SERX 18:07 → SERHOLD 18:13 → S2NX 20:33
PROVIDERS: Nurse Practitioner Family; Student in an Organized Health Care Education/Training Program; Admitting Provider Internal Medicine; Emergency Provider Emergency Medicine; Visit Provider Internal Medicine
DX: I63.331 Cerebral infarction due to thrombosis of right posterior cerebral artery (principal); N13.6 Pyonephrosis; Z59.00 Homelessness unspecified; N17.9 Acute kidney failure, unspecified; Z16.12 Extended spectrum beta lactamase (ESBL) resistance; H53.8 Other visual disturbances; F15.90 Other stimulant use, unspecified, uncomplicated; R29.706 NIHSS score 6; B96.20 Unspecified Escherichia coli [E. coli] as the cause of diseases classified elsewhere; N20.0 Calculus of kidney; N21.0 Calculus in bladder; N18.9 Chronic kidney disease, unspecified; Q63.8 Other specified congenital malformations of kidney; F15.10 Other stimulant abuse, uncomplicated; I12.9 Hypertensive chronic kidney disease with stage 1 through stage 4 chronic kidney disease, or unspecified chronic kidney disease; R29.702 NIHSS score 2; R29.810 Facial weakness; H53.462 Homonymous bilateral field defects, left side; Z79.02 Long term (current) use of antithrombotics/antiplatelets; Z79.82 Long term (current) use of aspirin; Z79.899 Other long term (current) drug therapy; Z86.73 Personal history of transient ischemic attack (TIA), and cerebral infarction without residual deficits; Z87.442 Personal history of urinary calculi
CPT/HCPCS: 36415; 70450; 70496; 70498; 70544; 74176; 76770; 80053; 80061; 80307; 81001; 83036; 83090; 83735; 84100; 84439; 84443; 84484; 84703; 85025; 85610; 85730; 86780; 87077; 87086; 87186; 87389; 92610; 93005; 93306; 97162; 99285; A4649; J0696; J1643; J2543; J7040; J7050; Q9967; A9270